=== PATIENT | male | born 2000 ===

== ENCOUNTER → 2018-09-16 | Outpatient (CLI) | payer BC | END | disposition home or self-care (01) | LOC: LAB SHORT 10:39 → PLD 10:39 | DX: D22.5 Melanocytic nevi of trunk (principal) | CPT/HCPCS: 88305 ==

== ENCOUNTER → 2021-01-21 | Outpatient (CLI) | payer BC | END | disposition home or self-care (01) | LOC: LAB 14:55 → LAB SHORT 14:55 | DX: D22.5 Melanocytic nevi of trunk (principal) | CPT/HCPCS: 88305 ==